=== PATIENT | male | born 1960 | race Caucasian/White ===

== ENCOUNTER → 2021-06-08 15:20 | Outpatient (CLI) | payer OTHER, SELFPAY ==
--- NOTE | 2021-06-08 | DI.ECHO.S_ITS ---
[facility] +---------+ : : [address] : : : : [id number] : : : : Phone: [phone] Echocardiogram Report + + :Name: MITCH REED Study Date: 06/08/2021 Height: 67 in : :[facility] ReadingLocation: Weight: 220 lb : : Gender: Male BSA: 2.1 m2 : :: 1960 Age: 61 yrs BP: 138/103 mmHg: :Reason For Study: ATRIAL FIBRILLATION : :Ordering Physician: JAYASHREE, : :GA Performed By: Joellen Alves : :Referring: GA BLANC : + + Interpretation Summary The left ventricle is normal in size and wall thickness. Left ventricular systolic function appears normal without focal wall motion abnormalities. The ejection fraction is estimated to be 60-65%. Diastolic function could not be accurately assessed due to atrial fibrillation. The right ventricle is normal in size and function. Pulmonary artery pressures cannot be estimated because of the lack of a measurable TR jet velocity but the IVC suggests a CVP of around 3 mmHg. The left atrium is severely dilated. The right atrium is moderately dilated. There is no significant valvular heart disease. The aortic root is normal size. Procedure: A two-dimensional transthoracic echocardiogram with color flow and Doppler was performed. The study quality was technically adequate. There is no prior echocardiogram noted for this patient. The patient was in atrial fibrillation with heart rates between 85-120 bpm during the exam. Left Ventricle: The left ventricle is normal in size and wall thickness. Left ventricular systolic function appears normal without focal wall motion abnormalities. The ejection fraction is estimated to be 60-65%. Diastolic function could not be accurately assessed due to atrial fibrillation. Right Ventricle: The right ventricle is normal in size and function. Atria: The left atrium is severely dilated. The right atrium is moderately dilated. There is no Doppler evidence for an interatrial shunt. Mitral Valve: The mitral valve is normal in structure and function. There is trace mitral regurgitation. Aortic Valve: The aortic valve is trileaflet. The aortic valve opens well. There is no aortic valve stenosis. There is trace aortic regurgitation. Tricuspid Valve: The tricuspid valve is normal in structure and function. There is trace tricuspid regurgitation. Pulmonary artery pressures cannot be estimated because of the lack of a measurable TR jet velocity but the IVC suggests a CVP of around 3 mmHg. Pulmonic Valve: The pulmonic valve leaflets are thin and pliable; valve motion is normal. There is trace pulmonic regurgitation. There is no significant valvular heart disease. Great Vessels: The aortic root is normal size. The dimensions of the ascending aorta are normal. The IVC is of normal diameter and collapses greater than 50% with a sniff. This suggests a low right atrial pressure of 3 mm Hg. Pericardium/ Pleura There is no pericardial effusion. There is no pleural effusion. MMode/2D Measurements & Calculations LVIDd: 4.7 cm LVOT diam: 2.3 cm LVIDs: 3.2 cm Ao root diam: 3.4 cm FS: 31.7 % asc Aorta Diam: 3.1 cm IVSd: 1.0 cm Ao Arch Diam (Prox Trans): 3.2 cm LVPWd: 0.93 cm LV layne. diameter/BSA (cm/m^2): 2.2 LV sys. diameter/BSA (cm/m^2): 1.5 LA A2 area: 30.2 cm2 RA long axis: 6.6 cm LA A4 area: 33.6 cm2 RA area: 26.5 cm2 LA length (vol): 7.1 cm RA vol: 90.5 ml LA vol: 122.0 ml RA : 43.0 ml/m2 LA vol index: 57.9 ml/m2 IVC diam: 1.9 cm RVD1 (basal): 4.0 cm TAPSE: 1.8 cm Doppler Measurements & Calculations Ao V2 max: 103.5 cm/sec LVOT Max Chip: 80.4 cm/sec Ao V2 mean: 73.7 cm/sec LV V1 max P.6 mmHg Ao max P.3 mmHg LV V1 VTI: 13.8 cm Ao mean P.4 mmHg JARETT(I,D): 3.7 cm2 Ao V2 VTI: 15.8 cm JARETT(V,D): 3.3 cm2 sev ratio: 0.88 JARETT indexed to BSA (cm^2/m^2): 1.7 MV E max chip: 94.8 cm/sec PA V2 max: 100.0 cm/sec MV A max chip: 1.1 cm/sec PA V2 mean: 66.0 cm/sec MV E/A: 90.1 PA mean P.0 mmHg Med Peak E' Chip: 11.3 cm/sec PA pr(Accel): 61.0 mmHg E/E' med: 8.4 Lat Peak E' Chip: 14.1 cm/sec E/E' lat: 6.7 E/e' average: 7.6 MV dec time: 0.13 sec SV(LVOT): 58.1 ml Reading Physician:05:07 PM
== END ==
PROVIDERS: Referring Provider Internal Medicine Cardiovascular Disease; Visit Provider Internal Medicine Cardiovascular Disease
DX: I48.19 Other persistent atrial fibrillation (principal); I51.7 Cardiomegaly
CPT/HCPCS: 93306

== ENCOUNTER → 2021-06-14 08:30 | Outpatient (CLI) | payer OTHER, SELFPAY ==
--- NOTE | 2021-06-14 | DI.NM.S_ITS ---
PROCEDURE: NM MARY JO PERF SPECT REST & STR Rest and exercise myocardial perfusion SPECT with gated imaging and ejection fraction RADIOPHARMACEUTICAL: 13.0 mCi Tc-99m sestamibi IV at rest and 26.2 mCi Tc-99m sestamibi IV at peak exercise. A one day-protocol was performed. INDICATIONS: Other persistent atrial fibrillation TECHNIQUE: Radiopharmaceutical was injected at peak stress test, and also at rest. SPECT images were obtained. SPECT myocardial perfusion images were displayed in short axis, horizontal long axis, and vertical long axis views. Gated images were reviewed using [employer] software. COMPARISON: None. CARDIAC STRESS: A standard Jovany treadmill exercise tolerance test was performed by the patient under the supervision of an attending staff. The patient exercised for 7 minutes and 27 seconds; functional aerobic impairment (XAVIER) is +15%. Hemodynamic data: There is normal blood pressure and heart rate response to exercise stress. Patient achieved 101% of maximum predicted heart rate at peak exercise. Symptoms: Patient denied chest pain during exercise. EKG: Resting ECG shows atrial fibrillation. No diagnostic EKG changes of ischemia with exercise; occasional PVCs. FINDINGS: Raw data: There is good myocardial labeling by radiotracer. No significant motion artifacts. Hhpl-qv-vtxmi ratio is 0.32 (normal is less than 0.38 for sestamibi tracer, and less than 0.50 for thallium tracer). Left ventricle function: Gated images demonstrate normal left ventricle wall thickening. No segmental wall motion abnormality. No transient ischemic dilation; TID is 0.93 (normal less than 1.3). The left ventricle resting end-diastolic volume is 107 mL. Left ventricle stress ejection fraction is 73%; normal values are above 45%. Myocardial perfusion: No perfusion defects on stress prone imaging. IMPRESSION: Low risk, normal treadmill nuclear stress test 1) No perfusion evidence of ischemia or infarction. 2) Normal left ventricular size, wall motion, and systolic function (EF post stress 73%). 3) No ECG evidence of ischemia. 4) No angina during the study. 5) Mildly reduced exercise capacity (10.1 METs, XAVIER +15%). 101% of maximum predicted heart rate reached. Appropriate BP response to exercise. 6) No prior nuclear stress test available for comparison. Dictated by: Bonita Rivas MD on 06/14/2021 at 16:40 Approved by: Bonita Rivas MD on 06/14/2021 at 16:44
[2021-06-14 10:16] LABS: COVID19 -Nasal RAPID Negative (Negative)
== END ==
PROVIDERS: PCP Family Medicine; Referring Provider Internal Medicine Cardiovascular Disease; Visit Provider Internal Medicine Cardiovascular Disease
DX: I48.19 Other persistent atrial fibrillation (principal); Z20.822 Contact with and (suspected) exposure to COVID-19
CPT/HCPCS: 78452; 87635; 93017; A9502

== ENCOUNTER 2024-02-07 19:36 | Emergency (ER) | payer OTHER, SELFPAY ==
--- NOTE | 2024-02-07 19:39 | ED.GENADULT ---
HPI - General Adult General Chief complaint: Back Pain/Injury Stated complaint: sciatica pain/back pain Time Seen by Provider: 02/07/24 19:39 History of Present Illness HPI narrative: 64-year-old male with ongoing right low back pain and right-sided sciatica since September 2023, had been followed by local orthopedic surgeon Dr. Benjamin, just completed a course of oral steroid Medrol Dosepak a couple of days ago, got a little relief on the 2nd day, having increased/persistence of prior right-sided sciatica pain, with radiation to his right leg right foreleg and right foot as in prior episodes. He had MRI lumbar spine done at [facility] on 01/02/2024, provided a copy of the report to be photocopied for medical record here. He has history of atrial fibrillation, takes Eliquis, no black or red stools after recent steroid course. He denies abdominal pain. He denies nausea or vomiting. He denies tingling numbness of the perineum. He has pain with movement but is able to walk and lift his leg. He believes the plan next would be epidural steroid injection treatment, and if that does not work then possible neurosurgery/spinal surgery. Related Data Previous Rx's Medication Instructions Recorded methocarbamol 500 mg tablet 500 mg PO TID rhomboid muscle 02/07/24 strain 7 days #21 tabs Allergies Allergy/AdvReac Type Severity Reaction Status Date / Time No Known Drug Allergies Allergy Verified 02/07/24 19:44 Review of Systems Review of Systems Narrative: as per HPI Patient History Social History Smoking Status: Never smoker Exam Narrative Exam Narrative: GENERAL: Well-developed patient, in mild distress. HEAD: Atraumatic. Normocephalic. EYES: Pupils equal round and reactive. Extraocular motions intact. No scleral icterus. No injection or drainage. ENT: Nose without bleeding, purulent drainage. Throat without erythema, tonsillar hypertrophy or exudate. Airway patent. NECK: Trachea midline. Non tender CARDIOVASCULAR: Regular rate and rhythm without murmurs, gallops, or rubs. RESPIRATORY: Clear to auscultation. Breath sounds equal bilaterally. No wheezes, rales, or rhonchi. GASTROINTESTINAL: Abdomen soft, non-tender, nondistended. EXTREMITIES: No edema or joint tenderness. BACK: Tenderness right low back paraspinal musculature, no skin rash/redness/vesicles, no midline tenderness. SLR can lift leg >45 degree bilateral NEURO: AOx3. Motor 5/5 BLE and 5/5 BUE, nonfocal nuero exam SKIN: No rash or erythema of visible areas Initial Vital Signs Initial Vital Signs: Vital Signs Temperature 98.3 F 02/07/24 19:42 Pulse Rate 89 02/07/24 19:42 Respiratory Rate 16 02/07/24 19:42 Blood Pressure 208/97 H 02/07/24 19:42 Pulse Oximetry 100 02/07/24 19:42 Oxygen Delivery Method Room Air 02/07/24 19:42 Course Orders Ordered: Discontinued Medications Dexamethasone (Dexamethasone 10 Mg/Ml Vial) 10 mg IV NOW ONE Stop: 02/07/24 20:10 Last Admin: 02/07/24 20:19 Dose: 10 mg Documented By: Diazepam (Diazepam 10 Mg/2 Ml Syringe) 5 mg IV NOW ONE Stop: 02/07/24 20:10 Last Admin: 02/07/24 20:19 Dose: 5 mg Documented By: Famotidine (Famotidine 20 Mg/2 Ml Vial) 20 mg IV NOW SANA Last Admin: 02/07/24 21:18 Dose: 20 mg Documented By: Hydromorphone HCl (Hydromorphone 0.5 Mg Inj) 0.5 mg IV NOW ONE Stop: 02/07/24 20:10 Last Admin: 02/07/24 20:20 Dose: 0.5 mg Documented By: Tramadol HCl (Tramadol 50 Mg Tablet) 50 mg PO NOW ONE Stop: 02/07/24 21:05 Last Admin: 02/07/24 21:14 Dose: 50 mg Documented By: Tramadol HCl (Tramadol 50 Mg Prepack) 1 bottle MISC DIRECTED ONE Stop: 02/07/24 21:07 Last Admin: 02/07/24 21:14 Dose: 1 bottle Documented By: Vital Signs Vital signs: Vital Signs - 8 hr 02/07/24 19:42 02/07/24 21:07 02/07/24 21:33 Temperature 98.3 F 98.2 F Pulse Rate 89 65 56 L Respiratory Rate 16 18 15 Blood Pressure 208/97 H 145/85 H 148/95 H Pulse Oximetry 100 98 98 Oxygen Delivery Method Room Air Room Air Room Air Medical Decision Making Differential Diagnosis Differential Diagnosis: Likely exac of R-sided chronic sciatica, doubt epidural hematoma/abscess Medical Records Medical records reviewed: Yes I reviewed the patient's medical records. Medical records narrative: Reviewed outside report provided by patient. Printed report of his MRI study from [facility], 01/02/24. Impressions: ?multilevel degenerative changes of the lumbar spine as described above. There is severe central canal stenosis at L3-L4. Moderate to severe central canal stenosis at L4-L5. Moderate neuroforaminal stenosis bilaterally at L3-L4 and L4-L5. MDM Narrative Medical decision making narrative: 64-year-old male with ongoing right-sided sciatica, MRI imaging last month showed multilevel disc spinal canal stenosis and neuroforaminal narrowing, recent oral course Medrol Dosepak steroid just copmpleted, taking Eliquis for history of chronic atrial fibrillation, no GI bleeding symptoms, worsening pain off steroid pulse. We will avoid Toradol for now given history of Eliquis chronic anticoagulation. No weakness. IV Decadron with IV Pepcid, IV Valium for muscle relaxation, IV Dilaudid analgesic. Patient has improved symptoms, able to stand upright and ambulate. Still having some pain but more tolerable. Repeat blood pressure no longer elevated. Given P.o. tramadol dose, and home pack tramadol. Prescription also sent for Robaxin if he would like to trial a muscle relaxant. We will hold off on further steroids, advised to contact office of his orthopedic/spine surgeon Dr. Benjamin tomorrow during regular hours, patient anticipates scheduling of EPSI as next therapeutic step. Home with , improved Discharge Plan Departure Patient Disposition: Home Clinical Impression: Sciatica of right side, Chronic low back pain with sciatica Instructions: DI for Back Pain With Sciatica Activity Restrictions/Additional Instructions: Ongoing right-sided back pain and sciatica, MRI last month showed multilevel areas of spinal stenosis and neuroforaminal narrowing, recent course of Medrol Dosepak steroids, awaiting possible epidural steroid injection procedure, followed by local orthopedic/spine surgeon Dr. Benjamin, worsening pain last couple of days, no muscle weakness, leg left well. Copy of MRI outside MRI report reviewed. IV Decadron steroid given, IV Dilaudid, IV Valium. We did not use Toradol given your history of Eliquis chronic anticoagulation, and recent steroid pulse course, increased risk for gastrointestinal bleeding. Discharge on methocarbamol muscle relaxant to use if desired, tramadol home pack to use if desired. Consider contacting Dr. Joyce during regular hours tomorrow, consider referral for next step epidural steroid injection treatment, or surgical intervention as warranted. Return to this/nearest emergency department for any change worsening symptoms or any concerns prior Prescriptions: New methocarbamol 500 mg tablet 500 mg PO TID 7 Days Qty: 21 0RF Referrals: Salvador Benjamin MD [Physician] - Zack Hernández MD [Primary Care Provider] - Stand Alone Forms: Patient Portal/API
[2024-02-07 19:42] VITALS: BP 208/97; PULSE 89; RESP 16; TEMP 36.8; O2SAT 100; BMI 36.0
[2024-02-07] MEDS: diazePAM 10 MG/2 ML SYRINGE 5 MG IV (20:19)
[2024-02-07] MEDS: DEXAMETHASONE 10 MG/ML VIAL IV (20:19)
[2024-02-07] MEDS: HYDROMORPHONE 0.5 MG INJ IV (20:20)
[2024-02-07 21:07] VITALS: BP 145/85; PULSE 65; RESP 18; O2SAT 98
[2024-02-07] MEDS: TRAMADOL 50 MG TABLET PO (21:14)
[2024-02-07] MEDS: TRAMADOL 50 MG PREPACK 1 BOTTLE MISC (21:14)
[2024-02-07] MEDS: FAMOTIDINE 20 MG/2 ML VIAL IV (21:18)
[2024-02-07 21:33] VITALS: BP 148/95; PULSE 56; RESP 15; TEMP 36.8; O2SAT 98
== END 2024-02-07 21:34 | disposition home or self-care (01) ==
PROVIDERS: Emergency Provider Emergency Medicine; PCP Family Medicine
DX: M54.41 Lumbago with sciatica, right side (principal); G89.29 Other chronic pain; Z79.01 Long term (current) use of anticoagulants
CPT/HCPCS: 96374; 96375; 99283; J1100; J1170; J3360

== ENCOUNTER 2025-05-13 18:36 | Emergency (ER) | payer OTHER, SELFPAY ==
[2025-05-13 18:50] VITALS: BP 157/79; PULSE 66; RESP 16; TEMP 36.6; O2SAT 98; BMI 35.2
--- NOTE | 2025-05-13 20:12 | ED_ITS ---
HPI - Extremity Injury (Lower) General Chief Complaint: Extremity Injury, Lower Stated Complaint: Initial muscle pull now fever, swollen Time Seen by Provider: 05/13/25 20:12 Source: patient Mode of arrival: Ambulatory History of Present Illness HPI Narrative: 65-year-old male patient with a history of hypertension and atrial fibrillation status post ablation who is still on Eliquis. He was hiking and slipped on a log and injured his right proximal medial thigh about 9 days ago. He has noticed worsening purple coloration and since yesterday's had some warmth in the distal part of the contusion/purpura. No mass. No fever or chills and no other complaint. He was just worried about the warmth on his contusion. Related Data Allergies Allergy/AdvReac Type Severity Reaction Status Date / Time No Known Drug Allergies Allergy Verified 02/07/24 19:44 Review of Systems Review of Systems ROS Unobtainable: All systems reviewed & are unremarkable except as noted in HPI and below Musculoskeletal Musculoskeletal: Reports as per HPI Integumentary/Breasts Skin/Breast: Reports as per HPI Patient History Social History Smoking Status: Never smoker Smoking Status: Never smoker Exam Narrative Exam Narrative: General: Alert and conversant. No distress. Appears well nourished and well hydrated Lungs: Nonlabored respiration. Musculoskeletal: Patient has a large purpuric contusion on the medial proximal thigh extending more than detention down to the knee. There is no hematoma evident. There is minimal tenderness and no erythema. There is slight warmth at the distal part of the discoloration. Otherwise Exam of the extremities, axial spine and ribcage reveals no deformity, bony tenderness or swelling. Range of motion intact Neuro: Alert and oriented. Cranial nerves, motor, sensory and cerebellar all grossly intact. No focal deficit Skin: Warm and normal color. No rashes Psychological: Normal affect and interaction. No evidence of delusion or psychosis. Normal mood. Initial Vital Signs Initial Vital Signs: Vital Signs Temperature 97.8 F 05/13/25 18:50 Pulse Rate 66 05/13/25 18:50 Respiratory Rate 16 05/13/25 18:50 Blood Pressure 157/79 H 05/13/25 18:50 Pulse Oximetry 98 05/13/25 18:50 Oxygen Delivery Method Room Air 05/13/25 18:50 Course Vital Signs Vital signs: Vital Signs - 8 hr 05/13/25 18:50 05/13/25 20:20 05/13/25 20:20 Temperature 97.8 F Pulse Rate 66 63 Respiratory Rate 16 Blood Pressure 157/79 H 166/74 H Pulse Oximetry 98 99 Oxygen Delivery Method Room Air 05/13/25 20:30 05/13/25 20:30 05/13/25 21:00 Temperature Pulse Rate 66 61 Respiratory Rate Blood Pressure 139/64 Pulse Oximetry 97 99 Oxygen Delivery Method 05/13/25 21:00 Temperature Pulse Rate Respiratory Rate Blood Pressure 126/65 Pulse Oximetry Oxygen Delivery Method MDM - Extremity Injury (Lower) MDM Narrative Medical decision making narrative: Patient has a large right thigh contusion and probable medial thigh muscle tear with no hematoma and slight warmth but other findings do not point towards infection. There is no erythema and minimal tenderness. I believe this is a resolving contusion and muscle tear. Plan is to continue cold packs and [id number] medicine. Follow up with primary care as needed. Return to the ER if worse Discharge Plan Departure Patient Disposition: Home Clinical Impression: Muscle strain of right thigh, Contusion Instructions: Contusion, Groin Strain Activity Restrictions/Additional Instructions: Continue cold packs intermittently and [id number] medicine. Follow up with your doctor for recheck. Return to the ER if worse. Referrals: Zack Hernández MD [Primary Care Provider, [facility]] Stand Alone Forms: Patient Portal/API
[2025-05-13 20:20] VITALS: BP 166/74; PULSE 63; O2SAT 99
[2025-05-13 20:30] VITALS: BP 139/64; PULSE 66; O2SAT 97
[2025-05-13 21:00] VITALS: BP 126/65; PULSE 61; O2SAT 99
== END 2025-05-13 21:18 | disposition home or self-care (01) ==
PROVIDERS: Emergency Provider Emergency Medicine; PCP Family Medicine
DX: S76.911A Strain of unspecified muscles, fascia and tendons at thigh level, right thigh, initial encounter (principal); S70.11XA Contusion of right thigh, initial encounter; W01.0XXA Fall on same level from slipping, tripping and stumbling without subsequent striking against object, initial encounter
CPT/HCPCS: 99281